=== PATIENT | male | born 1960 | race Caucasian/White ===

== ENCOUNTER → 2021-02-01 09:45 | Outpatient (CLI) | payer OTHER, SELFPAY ==
[2021-02-01 13:13] LABS: COVID19 -Nasal RAPID Negative (Negative)
== END ==
PROVIDERS: Visit Provider Nurse Practitioner Family
DX: Z20.822 Contact with and (suspected) exposure to COVID-19 (principal)
CPT/HCPCS: 87635

== ENCOUNTER 2021-02-03 14:47 | Day surgery (SDC) | payer OTHER, SELFPAY ==
--- NOTE | 2021-02-03 12:40 | PM.HP.1 ---
History of Present Illness History of Present Illness Date Patient Seen: 02/03/21 Chief complaint: SCREENING COLONOSCOPY Narrative: 60 Years Old Male seen today for consideration of a screening colonoscopy. There have been no lower GI symptoms suggesting disease such as change in bowel habits, bleeding, abdominal pain or anemia. He does have a family history of colon polyps in his brother and mother. Overall health issues have been stable, including no major cardiac events for at least 6 weeks. 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 Patient History Medical History (Updated 02/03/21 @ 15:00 by Laney Oneal RN) Hernia, inguinal Hypertension Meds Home Medications and Allergies Home Medications Medication Instructions Recorded Confirmed Type lisinopril 20 mg PO DAILY 02/03/21 02/03/21 History Allergies Allergy/AdvReac Type Severity Reaction Status Date / Time No Known Drug Allergies Allergy Verified 02/03/21 14:58 Review of Systems Review of Systems Narrative: All remaining ROS were reviewed and negative except as addressed. Exam Narrative Exam Narrative: GENERAL: Alert and oriented, appearing stated age and in no acute distress. HEENT: Head normocephalic/atraumatic. Extraocular movements intact. LUNGS: Clear to ausculation bilaterally, no wheezes, rhonchi or rales. CV: Normal S1 and S2 with regular rate and rhythm, no audible murmurs, rubs or gallops. ABDOMEN: Soft, non-tender, non-distended, no organomegaly. Positive bowel sounds. EXTREMITIES: No clubbing, cyanosis, or edema. NEURO: Cranial nerves II through XII grossly intact, no focal deficits. PSYCH: Alert and oriented x 3. SKIN: No concerning lesions. Assessment & Plan Assessment & Plan narrative: 1. Family history of colon polyps 2. Screening for colon cancer Plan for colonoscopy. The nature and character of the procedure as well as anticipated results were discussed. The possibility of not completing the procedure was also discussed. Possible complications including aspiration pneumonia, bleeding, perforation and reaction to medications either for sedation or preparation and missed lesions were discussed. Questions were answered and proceeding to the colonoscopy was elected. Informed consent signed. I sincerely appreciate the referral allowing me to participate in this patient's care. Please contact me with any questions or concerns. Time Spent With Patient Critical Care time: I spent a total of [] minutes of critical care time on this patient's care today; this time is exclusive of procedural time.
--- NOTE | 2021-02-03 12:42 | PM.OP.COLON ---
Operative Date/Time/Diagnoses Date of procedure: 02/03/21 Procedure Notes SCOAP/Timeout: 3:49 p.m. Procedure in detail: ENDOSCOPIST: Therese Silvestre MD Sedation RN: Hilda Vazquez RN Sedation start time: 2:59 p.m. Sedation end time: 4:10 p.m. PROCEDURE: Colonoscopy INDICATIONS: 1. Family history of colon polyps 2. Screening for colon cancer MEDICATION: Levsin 0.125 mg sublingual, incremental doses of Versed and fentanyl until appropriate level sedation achieved. ASA CLASS: 2 CECAL WITHDRAWAL TIME: 13 minutes COMPLICATIONS: None. EXTENT OF PROCEDURE: Cecum. QUALITY OF PREP: Good with portions of liquid stool. PROCEDURE: Prior to insertion of the colonoscope, a digital rectal examination was accomplished with circumferential palpation of the distal rectal mucosa without significant findings being noted. The high-definition colonoscope was passed into the rectum in the usual fashion and advanced over to the cecum without difficulty. The ileocecal valve, appendiceal stoma, and medial wall all could be inspected and no abnormalities were seen. ASCENDING COLON: As the colonoscope was withdrawn, care was taken to expose and inspect the haustral folds and no abnormalities were seen. HEPATIC FLEXURE: Normal, no polyps, diverticula or other abnormalities. TRANSVERSE COLON: Normal, no polyps, diverticula or other abnormalities. DESCENDING COLON: Normal, no polyps, diverticula or other abnormalities. SIGMOID COLON: Normal, no polyps, diverticula or other abnormalities. RECTUM: Normal. J maneuver was produced. There was no significant perianal disease. The J maneuver was broken. The remainder of the rectum was inspected and there was no external hemorrhoid disease. The scope was withdrawn. IMPRESSION: 1. Normal colonoscopy PLAN: 1. Repeat colonoscopy in 5 years. The possibility of a missed lesion including a malignancy has been discussed with the patient previously. Potential alarm symptoms have been discussed and should be reported immediately.
[2021-02-03 15:02] VITALS: BP 151/90; PULSE 95; RESP 16; TEMP 36.5; O2SAT 96; BMI 31.1
[2021-02-03] MEDS: LACTATED RINGERS 1,000 ML 200 ML IV (15:10)
[2021-02-03] MEDS: HYOSCYAMINE 0.125 MG TABLET PO (15:20)
[2021-02-03 16:12] VITALS: BP 108/81; PULSE 80; RESP 15; TEMP 36.6; O2SAT 93
[2021-02-03] MEDS: fentaNYL 250 MCG/5 ML INJ IV (16:13)
[2021-02-03] MEDS: MIDAZOLAM 5 MG/5 ML VIAL IV (16:13)
[2021-02-03 16:17] VITALS: BP 114/75; PULSE 80; RESP 16; O2SAT 92
[2021-02-03 16:22] VITALS: BP 120/81; PULSE 74; RESP 16; O2SAT 93
[2021-02-03 16:30] VITALS: BP 114/72; PULSE 74; RESP 16; O2SAT 93
[2021-02-03 16:35] VITALS: BP 124/73; PULSE 75; RESP 16; TEMP 36.6; O2SAT 93
== END 2021-02-03 16:42 | disposition home or self-care (01) ==
PROVIDERS: PCP Family Medicine; Referring Provider Student in an Organized Health Care Education/Training Program; Visit Provider Student in an Organized Health Care Education/Training Program
PROC: 0DJD8ZZ Inspection of Lower Intestinal Tract, Via Natural or Artificial Opening Endoscopic (ICD-10-PCS; CPT 45378; principal; 2021-02-03 16:00)
DX: Z12.11 Encounter for screening for malignant neoplasm of colon (principal); Z83.71 Family history of colonic polyps
CPT/HCPCS: 45378; J2250; J3010